=== PATIENT | male | born 1945 | race Caucasian/White ===

== ENCOUNTER 2022-09-29 11:54 | Day surgery (SDC) | payer MEDICARE ==
[~2022-09-29 11:54] MED LIST: Lactated Ringers 1,000 ML IV SCH; Sodium Chloride 0.9% 10 ML Syringe FLUSH PRN
[2022-09-29] MEDS ORDERED: Midazolam 1 MG/ML 2 ML SDV IV ONE (11:55)
[2022-09-29] MEDS ORDERED: Lactated Ringers 1,000 ML IV ONE (11:55)
[2022-09-29] MEDS ORDERED: Rocuronium 100 MG/10 ML MDV IV ONE (11:55)
[2022-09-29] MEDS ORDERED: ePHEDrine 50 MG/ML SDV IV ONE (11:55)
[2022-09-29] MEDS ORDERED: Ketorolac 30 MG/ML SDV IVPUSH ONE (11:55)
[2022-09-29] MEDS ORDERED: Glycopyrrolate 0.2 MG/ML 5 ML MDV IV ONE (11:55)
[2022-09-29] MEDS ORDERED: Propofol 200 MG/20 ML SDV IV ONE (11:55)
[2022-09-29] MEDS ORDERED: Ondansetron 4 MG/2 ML SDV IVPUSH ONE (11:55)
[2022-09-29] MEDS ORDERED: Phenylephrine 1% 10 MG/ML SDV IV ONE (11:55)
[2022-09-29] MEDS ORDERED: Sugammadex Sodium 200 MG/2 ML VIAL IV ONE (11:55)
[2022-09-29] MEDS ORDERED: fentaNYL 100 MCG/2 ML SDV IV ONE (11:55)
[2022-09-29] MEDS ORDERED: HYDROmorphone 2 MG/ML SDV IV ONE (11:55)
[2022-09-29] MEDS ORDERED: Dextrose 5% in Water 1,000 ML IV SCH ×2 (13:14→13:15)
[2022-09-29] MEDS ORDERED: Bupivacaine 0.5%/EPINEPHrine 1:200,000 10 ML SDV NERVRT ONE (13:40)
[2022-09-29] MEDS ORDERED: Acetaminophen/oxyCODONE 325-5 MG Tab PO ONE (16:34)
== END 2022-09-29 17:21 | disposition home or self-care (01) ==
LOC: FB.SDS 11:54
PROVIDERS: ATTEND Surgery
DX: K80.12 Calculus of gallbladder with acute and chronic cholecystitis without obstruction (principal); K82.8 Other specified diseases of gallbladder; E11.9 Type 2 diabetes mellitus without complications; E66.9 Obesity, unspecified; Z98.890 Other specified postprocedural states; Z79.899 Other long term (current) drug therapy; Z79.84 Long term (current) use of oral hypoglycemic drugs; Z68.41 Body mass index [BMI] 40.0-44.9, adult
CPT/HCPCS: 00790; 82947; 88304; A9270-GY; J0690; J1170; J1885; J2250; J2370; J2405; J2704; J3010; J3490; J7060; J7120